=== PATIENT | male | born 1980 | race Caucasian/White ===

== ENCOUNTER 2025-02-21 12:32 | Emergency (ER) | payer OTHER ==
[~2025-02-21] VITALS: Ht 177.8 cm; Wt 87.0 kg
[2025-02-21 12:35] VITALS: O2SAT 98
[2025-02-21] MEDS ORDERED: TETANUS, DIPHTHERIA, PERTUSSIS VAC/PF 0.5ML (>10YR OLD) IM ONE (12:45)
[2025-02-21] MEDS ORDERED: IBUP-1455 MT (14:12)
[2025-02-21 14:25] VITALS: BP 120/77; PULSE 80; RESP 15; TEMP 37; O2SAT 99
== END 2025-02-21 14:25 | disposition home or self-care (01) ==
LOC: ER 12:32
DX: S80.812A Abrasion, left lower leg, initial encounter (principal); S80.811A Abrasion, right lower leg, initial encounter; V13.4XXA Pedal cycle driver injured in collision with car, pick-up truck or van in traffic accident, initial encounter; Y92.410 Unspecified street and highway as the place of occurrence of the external cause; Y93.55 Activity, bike riding; Y99.8 Other external cause status
CPT/HCPCS: 72131; 73552; 73562; 73590; 99284